=== PATIENT | female | born 1960 | race Caucasian/White ===

== ENCOUNTER 2017-03-28 19:04 | Emergency (ER) | payer SELFPAY | END 2017-03-28 19:50 | disposition left against medical advice (07) | LOC: EMS 19:05 | DX: R10.9 Unspecified abdominal pain (principal); Z53.21 Procedure and treatment not carried out due to patient leaving prior to being seen by health care provider ==

== ENCOUNTER 2017-09-06 04:42 | Emergency (ER) | payer MEDICAID ==
[~2017-09-06] VITALS: Ht 162.6 cm; Wt 77.3 kg
[2017-09-06 06:51] VITALS: BP 139/87
== END 2017-09-06 07:07 | disposition home or self-care (01) ==
LOC: EMS 04:43
DX: G47.00 Insomnia, unspecified (principal); F41.9 Anxiety disorder, unspecified; Z87.891 Personal history of nicotine dependence; Z88.0 Allergy status to penicillin; Z88.6 Allergy status to analgesic agent; Z88.1 Allergy status to other antibiotic agents; Z88.8 Allergy status to other drugs, medicaments and biological substances
CPT/HCPCS: 99283

== ENCOUNTER 2017-09-29 18:35 | Emergency (ER) | payer MEDICAID ==
[~2017-09-29] VITALS: Ht 162.6 cm; Wt 78.6 kg
[2017-09-29 18:46] VITALS: BP 149/84
== END 2017-09-29 19:00 | disposition left against medical advice (07) ==
LOC: EMS 18:40
DX: M54.5 Low back pain (principal); Z87.891 Personal history of nicotine dependence; Z53.21 Procedure and treatment not carried out due to patient leaving prior to being seen by health care provider

== ENCOUNTER 2017-09-30 15:01 | Emergency (ER) | payer MEDICAID ==
[~2017-09-30] VITALS: Ht 162.6 cm; Wt 78.0 kg
[2017-09-30] MEDS ORDERED: IBUPROFEN 800 MG TABLET PO ONE (16:30)
[2017-09-30 16:32] VITALS: BP 139/99
== END 2017-09-30 17:02 | disposition home or self-care (01) ==
LOC: EMS 15:04
DX: M54.5 Low back pain (principal); Z87.891 Personal history of nicotine dependence; Z88.0 Allergy status to penicillin; Z88.6 Allergy status to analgesic agent; Z88.5 Allergy status to narcotic agent; Z88.8 Allergy status to other drugs, medicaments and biological substances; V43.53XA Car driver injured in collision with pick-up truck in traffic accident, initial encounter; Y93.89 Activity, other specified; Y92.89 Other specified places as the place of occurrence of the external cause; Y99.8 Other external cause status
CPT/HCPCS: 99283

== ENCOUNTER 2017-10-03 16:16 | Emergency (ER) | payer MEDICAID | END 2017-10-03 16:45 | disposition left against medical advice (07) | LOC: EMS 16:19 | DX: Z53.21 Procedure and treatment not carried out due to patient leaving prior to being seen by health care provider (principal) ==

== ENCOUNTER 2017-10-05 14:38 | Emergency (ER) | payer MEDICAID | END 2017-10-05 16:40 | disposition left against medical advice (07) | LOC: EMS 14:40 | DX: M79.606 Pain in leg, unspecified (principal); Z53.21 Procedure and treatment not carried out due to patient leaving prior to being seen by health care provider ==

== ENCOUNTER 2017-10-14 14:17 | Emergency (ER) | payer MEDICAID, OTHER ==
[~2017-10-14] VITALS: Ht 162.6 cm; Wt 81.4 kg
[2017-10-14 17:48] LABS: BASOPHILS % (AUTO) 0.4 % (0.0-2.0); EOSINOPHILS % (AUTO) 0.9 % (1.0-6.0); HEMATOCRIT 42.4 % (36-46); HEMOGLOBIN 14.5 g/dL (12.0-16.0); LYMPHOCYTES # (AUTO) 1.7 K/uL (1.0-4.8); LYMPHOCYTES % (AUTO) 18.5 % (22.0-44.0); MEAN CORPUSCULAR HEMOGLOBIN 30.6 pg (26.0-34.0); MEAN CORPUSCULAR HGB CONC 34.1 G/dL (31.0-37.0); MEAN CORPUSCULAR VOLUME 90 fL (80-100); MONOCYTES # (AUTO) 0.7 K/uL (0.1-1.0); MONOCYTES % (AUTO) 7.8 % (2.0-9.0); NEUTROPHILS # (AUTO) 6.5 K/uL (1.8-7.7); NEUTROPHILS % (AUTO) 72.4 % (40.0-70.0); PLATELET COUNT (AUTO) 218 K/uL (150-450); RED BLOOD CELL COUNT(AUTO) 4.73 MIL/uL (4.00-5.20); RED CELL DISTRIBUTION WIDTH 14.3 % (11.5-14.5)
[2017-10-14 17:54] LABS: ANION GAP 9 mmol/L (8-16); CARBON DIOXIDE 30 mmol/L (22-29); CHLORIDE 101 mmol/L (98-107); CREATININE 0.45 mg/dL (0.60-1.30); GLOMERULAR FILTR. RATE CALC > 60 mL/min (>60); GLUCOSE,RANDOM 89 mg/dL (70-110); POTASSIUM 3.7 mmol/L (3.5-5.1); SODIUM SERUM 140 mmol/L (136-145); UREA NITROGEN, BLOOD 16 mg/dL (7-18)
[2017-10-14 17:55] VITALS: BP 147/95
[2017-10-14 18:00] LABS: ALANINE AMINOTRANSFERASE 42 U/L (12-78); ALBUMIN 3.9 g/dL (3.4-5.0); ALKALINE PHOSPHATASE 64 U/L (46-116); ASPARTATE AMINOTRANSFERASE 25 U/L (15-37); BILIRUBIN,TOTAL 0.3 mg/dL (0.1-1.0)
[2017-10-14 18:43] LABS: B-TYPE NATRIURETIC PEPTIDE 24 pg/mL (0-100)
== END 2017-10-14 19:00 | disposition home or self-care (01) ==
LOC: EMS 14:18
DX: R00.2 Palpitations (principal); R06.02 Shortness of breath; R20.2 Paresthesia of skin; R03.0 Elevated blood-pressure reading, without diagnosis of hypertension; D64.9 Anemia, unspecified; Z88.0 Allergy status to penicillin; Z88.8 Allergy status to other drugs, medicaments and biological substances; Z87.891 Personal history of nicotine dependence
CPT/HCPCS: 93005; 99285

== ENCOUNTER 2017-12-22 11:47 | Emergency (ER) | payer OTHER ==
[~2017-12-22] VITALS: Ht 162.6 cm; Wt 80.9 kg
[2017-12-22 13:16] VITALS: BP 127/66
== END 2017-12-22 14:14 | disposition home or self-care (01) ==
LOC: EMS 11:48
DX: R19.7 Diarrhea, unspecified (principal); R20.0 Anesthesia of skin; R20.2 Paresthesia of skin; Z88.0 Allergy status to penicillin; Z88.6 Allergy status to analgesic agent; Z88.1 Allergy status to other antibiotic agents; Z87.891 Personal history of nicotine dependence
CPT/HCPCS: 99281

== ENCOUNTER 2018-01-31 14:54 | Emergency (ER) | payer OTHER | END 2018-01-31 15:21 | disposition left against medical advice (07) | LOC: EMS 14:55 | DX: R53.1 Weakness (principal); R42 Dizziness and giddiness; Z53.21 Procedure and treatment not carried out due to patient leaving prior to being seen by health care provider ==

== ENCOUNTER 2022-11-13 08:20 | Emergency (ER) | payer OTHER ==
[~2022-11-13] VITALS: Ht 162.6 cm; Wt 85.5 kg
[2022-11-13 09:27] LABS: EOSINOPHILS % (AUTO) 1.8 % (1.0-6.0); HEMOGLOBIN 13.8 g/dL (12.0-16.0); LYMPHOCYTES # (AUTO) 1.6 K/uL (1.0-4.8); LYMPHOCYTES % (AUTO) 31.1 % (22.0-44.0); MEAN CORPUSCULAR HEMOGLOBIN 30.6 pg (26.0-34.0); MEAN CORPUSCULAR HGB CONC 33.6 G/dL (31.0-37.0); MEAN CORPUSCULAR VOLUME 91 fL (80-100); MONOCYTES # (AUTO) 0.5 K/uL (0.1-1.0); MONOCYTES % (AUTO) 8.6 % (2.0-9.0); NEUTROPHILS % (AUTO) 57.5 % (40.0-70.0); PLATELET COUNT (AUTO) 203 K/uL (150-450); RED BLOOD CELL COUNT(AUTO) 4.51 MIL/uL (4.00-5.20); RED CELL DISTRIBUTION WIDTH 13.5 % (11.5-14.5)
[2022-11-13 09:38] LABS: ANION GAP 4 mmol/L (8-16); CALCIUM, TOTAL 9.7 mg/dL (8.8-10.5); CARBON DIOXIDE 32 mmol/L (22-29); CHLORIDE 106 mmol/L (98-107); CREATININE 0.63 mg/dL (0.60-1.30); GLOMERULAR FILTR. RATE CALC > 60 mL/min (>60); GLUCOSE,RANDOM 92 mg/dL (70-110); POTASSIUM 3.5 mmol/L (3.5-5.1); SODIUM SERUM 142 mmol/L (136-145); UREA NITROGEN, BLOOD 17 mg/dL (7-18)
[2022-11-13 09:44] LABS: ALANINE AMINOTRANSFERASE 24 U/L (12-78); ALBUMIN 3.9 g/dL (3.4-5.0); ALKALINE PHOSPHATASE 88 U/L (46-116); ASPARTATE AMINOTRANSFERASE 22 U/L (15-37); BILIRUBIN,TOTAL 0.4 mg/dL (0.1-1.0)
[2022-11-13] MEDS ORDERED: MECL-134 PO (10:30)
[2022-11-13 10:35] VITALS: BP 138/89
== END 2022-11-13 10:40 | disposition home or self-care (01) ==
LOC: EMS 08:26
DX: R42 Dizziness and giddiness (principal); R51.9 Headache, unspecified; R00.2 Palpitations; R55 Syncope and collapse; D25.9 Leiomyoma of uterus, unspecified; Z98.51 Tubal ligation status; Z87.891 Personal history of nicotine dependence; Z88.0 Allergy status to penicillin; Z88.1 Allergy status to other antibiotic agents; Z88.5 Allergy status to narcotic agent; Z88.8 Allergy status to other drugs, medicaments and biological substances
CPT/HCPCS: 70450; 80053; 84484; 85025; 93005; 99285

== ENCOUNTER 2023-02-18 08:18 | Emergency (ER) | payer OTHER ==
[~2023-02-18] VITALS: Ht 162.6 cm; Wt 83.6 kg
[~2023-02-18 08:18] MED LIST: MECL-134 PO
[2023-02-18 08:21] VITALS: TEMP 98.3
[2023-02-18 08:47] LABS: BASOPHILS % (AUTO) 0.3 % (0.0-2.0); EOSINOPHILS % (AUTO) 0.9 % (1.0-6.0); HEMATOCRIT 43.4 % (36-46); LYMPHOCYTES # (AUTO) 1.3 K/uL (1.0-4.8); LYMPHOCYTES % (AUTO) 23.7 % (22.0-44.0); MEAN CORPUSCULAR HEMOGLOBIN 29.2 pg (26.0-34.0); MEAN CORPUSCULAR HGB CONC 32.2 G/dL (31.0-37.0); MEAN CORPUSCULAR VOLUME 91 fL (80-100); MONOCYTES # (AUTO) 0.4 K/uL (0.1-1.0); MONOCYTES % (AUTO) 7.7 % (2.0-9.0); NEUTROPHILS # (AUTO) 3.8 K/uL (1.8-7.7); NEUTROPHILS % (AUTO) 67.4 % (40.0-70.0); PLATELET COUNT (AUTO) 194 K/uL (150-450); RED BLOOD CELL COUNT(AUTO) 4.79 MIL/uL (4.00-5.20); RED CELL DISTRIBUTION WIDTH 13.8 % (11.5-14.5)
[2023-02-18 08:51] VITALS: BP 169/88; PULSE 60; RESP 16
[2023-02-18 09:06] LABS: ANION GAP 10 mmol/L (8-16); CALCIUM, TOTAL 9.2 mg/dL (8.8-10.5); CARBON DIOXIDE 29 mmol/L (22-29); CHLORIDE 100 mmol/L (98-107); CREATININE 0.58 mg/dL (0.60-1.30); GLOMERULAR FILTR. RATE CALC > 60 mL/min (>60); GLUCOSE,RANDOM 102 mg/dL (70-110); POTASSIUM 3.5 mmol/L (3.5-5.1); SODIUM SERUM 139 mmol/L (136-145)
== END 2023-02-18 09:57 | disposition home or self-care (01) ==
LOC: EMS 08:19
DX: R00.2 Palpitations (principal); G62.9 Polyneuropathy, unspecified; Z87.891 Personal history of nicotine dependence; Z98.51 Tubal ligation status; Z98.890 Other specified postprocedural states; Z88.0 Allergy status to penicillin; Z88.6 Allergy status to analgesic agent; Z88.1 Allergy status to other antibiotic agents; Z88.8 Allergy status to other drugs, medicaments and biological substances
CPT/HCPCS: 71045; 80048; 84484; 85025; 93005; 99285; 36415-L1; 36415-TC